=== PATIENT | female | born 1945 | race Caucasian/White ===

== ENCOUNTER 2017-05-16 01:02 | Emergency (ER) | payer MEDICARE, MEDICAID ==
[~2017-05-16] VITALS: Ht 162.6 cm; Wt 81.0 kg
[~2017-05-16 01:02] MED LIST: ACET-3161 PO; CIMETIDINE PO; INSLAN SQ; LEVIMIR FLEX PEN SUBCUT; LEVO150T8 PO; LOSA50TA20 PO; METF10002 PO; MULT-1146 PO; SIMV20TA6 PO
[2017-05-16] MEDS ORDERED: MORPHINE SULFATE 10 MG/ML CPJ IM ONE (02:30)
[2017-05-16 09:06] VITALS: BP 143/80
== END 2017-05-16 09:07 | disposition home or self-care (01) ==
LOC: ER 01:02
DX: S89.81XA Other specified injuries of right lower leg, initial encounter (principal); I10 Essential (primary) hypertension; Z98.1 Arthrodesis status; E11.9 Type 2 diabetes mellitus without complications; Z79.4 Long term (current) use of insulin; Z88.6 Allergy status to analgesic agent; Z88.0 Allergy status to penicillin; W01.0XXA Fall on same level from slipping, tripping and stumbling without subsequent striking against object, initial encounter; Y93.89 Activity, other specified; Y92.013 Bedroom of single-family (private) house as the place of occurrence of the external cause
CPT/HCPCS: 71045; 73030; 73562; 96372; 99284; J2270; L1830

== ENCOUNTER → 2020-01-09 | Outpatient (CLI) | payer MEDICARE, MEDICAID ==
[~2020-01-09] MED LIST changes: -CIMETIDINE PO; -LEVIMIR FLEX PEN SUBCUT; -LOSA50TA20 PO; +LOSA50TA41 PO; +METF-416 PO; -METF10002 PO; +SIMV-43 PO; -SIMV20TA6 PO
== END | disposition home or self-care (01) ==
LOC: MRI 08:43
PROVIDERS: ATTEND Neurological Surgery
DX: M43.17 Spondylolisthesis, lumbosacral region (principal); M48.07 Spinal stenosis, lumbosacral region; M47.816 Spondylosis without myelopathy or radiculopathy, lumbar region; M89.38 Hypertrophy of bone, other site; M47.812 Spondylosis without myelopathy or radiculopathy, cervical region; M48.02 Spinal stenosis, cervical region
CPT/HCPCS: 72141; 72148

== ENCOUNTER → 2020-01-15 | Outpatient (CLI) | payer MEDICARE, MEDICAID | END | disposition home or self-care (01) | LOC: RAD 11:30 | PROVIDERS: ATTEND Neurological Surgery | DX: M47.816 Spondylosis without myelopathy or radiculopathy, lumbar region (principal) | CPT/HCPCS: 72052 ==

== ENCOUNTER 2020-08-24 22:05 | Inpatient (IN) | payer MEDICARE, MEDICAID ==
[~2020-08-24] VITALS: Ht 167.6 cm; Wt 83.0 kg
[2020-08-24] MEDS ORDERED: MORPHINE SULFATE 4 MG/ML CPJ (NOT FOR IM USE) IV STA (22:49)
[2020-08-24] MEDS ORDERED: ONDANSETRON HCL 4MG/2ML INJ IV STA (22:49)
[2020-08-24] MEDS ORDERED: SODIUM CHLORIDE 0.9% 1,000 ML IV ONE (23:00)
[2020-08-24 23:30] LABS: BASOPHILS % 0.6 % (0.0-2.0); EOSINOPHILS % 3.6 % (0.0-5.0); HEMATOCRIT. 36.2 % (36.0-48.0); HEMOGLOBIN. 12.1 g/dL (12.0-16.0); LYMPHOCYTES % 25.4 % (20.0-50.0); MEAN CORPUSCULAR VOLUME 81.1 fL (81.0-99.0); MEAN PLATELET VOLUME 9.4 fl (7.4-10.4); MONOCYTES % 6.9 % (2.0-8.0); NEUTROPHILS % 63.5 % (40.0-76.0); PLATELET 318 x1000/uL (130-400); RED BLOOD CELL COUNT 4.46 mill/uL (4.2-5.4); RED CELL DISTRIBUTION WIDTH 14.5 % (11.6-14.6)
[2020-08-24 23:33] LABS: CHLORIDE 101 mEq/L (98-107)
[2020-08-24 23:36] LABS: PROTHROMBIN TIME 10.5 sec (9.6-11.0)
[2020-08-25 03:41] LABS: CLARITY URINE CLEAR (CLEAR); COLOR URINE YELLOW (YELLOW); KETONES URINE NEGATIVE (NEGATIVE); LEUKOCYTE ESTERASE URINE NEGATIVE (NEGATIVE); NITRITE URINE NEGATIVE (NEGATIVE); OCCULT BLOOD URINE NEGATIVE (NEGATIVE); PROTEIN URINE NEGATIVE (NEGATIVE); SPECIFIC GRAVITY URINE 1.027 (1.005-1.030); UROBILINOGEN URINE 0.2 E.U./dL (0.2-1.0)
[2020-08-25] MEDS: BLOOD SUGAR DIAGNOSTIC STRIP TEST SCH ×5 (03:55→21:45)
[2020-08-25] MEDS ORDERED: CLONIDINE 0.1MG TABLET PO PRN (04:00)
[2020-08-25] MEDS: INSULIN LISPRO (HIGH DOSE) 100 UNITS/ML SUBCUT SCH ×5 (04:10→21:54)
[2020-08-25] MEDS: MORPHINE SULFATE 2 MG/ML CPJ (NOT FOR IM USE) IV PRN ×4 (04:21→22:06)
[2020-08-25 08:00] VITALS: BP 142/65
[2020-08-25] MEDS: ENOXAPARIN 40MG/0.4ML SYR SUBCUT SCH (09:00)
[2020-08-25] MEDS: SODIUM CHL 0.45% + KCL 20MEQ/L 1,000 ML IV SCH ×2 (10:06→21:52)
[2020-08-25] MEDS: PANTOPRAZOLE SODIUM 40 MG/VIAL IV SCH (10:07)
[2020-08-25] MEDS: LOSARTAN POTASSIUM 100 MG TABLET PO SCH (10:07)
[2020-08-25] MEDS ORDERED: ONDANSETRON HCL 4MG/2ML INJ IV PRN (10:45)
[2020-08-25 12:00] VITALS: BP 136/76
[2020-08-25] MEDS ORDERED: MORPHINE SULFATE 2 MG/ML CPJ (NOT FOR IM USE) IV NR (12:00)
[2020-08-25] MEDS ORDERED: ACETAMINOPHEN 325MG TABLET PO PRN (14:30)
[2020-08-25] MEDS ORDERED: IPRATROPIUM/ALBUTEROL 0.5-3(2.5)MG/3ML NEB HHN PRN (14:30)
[2020-08-25] MEDS ORDERED: ACETAMINOPHEN 650MG SUPP PR PRN (14:30)
[2020-08-25] MEDS ORDERED: HYDROCODONE/ACETAMINOPHEN 5/325MG TABLET PO PRN (14:30)
[2020-08-25] MEDS ORDERED: BISACODYL 10MG SUPP PR PRN (14:30)
[2020-08-25 16:00] VITALS: BP 138/72
[2020-08-25 20:00] VITALS: BP 130/59
[2020-08-25 21:39] LABS: CREATINE KINASE MB FRACTION 1.3 ng/mL (0.5-3.6)
[2020-08-26] VITALS: BP 120/54
[2020-08-26] MEDS: MORPHINE SULFATE 2 MG/ML CPJ (NOT FOR IM USE) IV PRN ×3 (02:25→14:20)
[2020-08-26 04:00] VITALS: BP 108/51
[2020-08-26 06:05] LABS: BASOPHILS % 0.6 % (0.0-2.0); EOSINOPHILS % 1.8 % (0.0-5.0); HEMATOCRIT. 35.4 % (36.0-48.0); HEMOGLOBIN. 11.4 g/dL (12.0-16.0); LYMPHOCYTES % 19.4 % (20.0-50.0); MEAN CORPUSCULAR HEMOGLOBIN 26.6 pg (28.0-32.0); MEAN CORPUSCULAR VOLUME 82.4 fL (81.0-99.0); MEAN PLATELET VOLUME 9.7 fl (7.4-10.4); MONOCYTES % 9.2 % (2.0-8.0); PLATELET 258 x1000/uL (130-400); RED BLOOD CELL COUNT 4.29 mill/uL (4.2-5.4); RED CELL DISTRIBUTION WIDTH 14.5 % (11.6-14.6)
[2020-08-26 06:19] LABS: CHLORIDE 103 mEq/L (98-107)
[2020-08-26 06:30] LABS: LDL CHOLESTEROL 133 mg/dL (5-100)
[2020-08-26 06:33] LABS: HDL CHOLESTEROL 60 mg/dL (40-59); T4 FREE 1.22 ng/dL (0.76-1.46)
[2020-08-26] MEDS: BLOOD SUGAR DIAGNOSTIC STRIP TEST SCH ×4 (06:58→21:00)
[2020-08-26 08:00] VITALS: BP 135/64
[2020-08-26] MEDS: PANTOPRAZOLE SODIUM 40 MG/VIAL IV SCH (08:52)
[2020-08-26] MEDS: LOSARTAN POTASSIUM 100 MG TABLET PO SCH (08:53)
[2020-08-26] MEDS: ENOXAPARIN 40MG/0.4ML SYR SUBCUT SCH (09:00)
[2020-08-26] MEDS: INSULIN LISPRO (HIGH DOSE) 100 UNITS/ML SUBCUT SCH ×4 (09:01→21:00)
[2020-08-26] MEDS: SODIUM CHL 0.45% + KCL 20MEQ/L 1,000 ML IV SCH (10:25)
[2020-08-26 12:00] VITALS: BP 139/67
[2020-08-26 16:00] VITALS: BP 118/51
[2020-08-26] MEDS ORDERED: BUPIVACAINE HCL/PF 0.5% (5MG/ML) 10ML ONE (16:22)
[2020-08-26] MEDS ORDERED: VANCOMYCIN HCL 1 GM/VIAL ONE (16:22)
[2020-08-26] MEDS ORDERED: BACITRACIN 50,000 UNITS/VIAL ONE (16:23)
[2020-08-26] MEDS ORDERED: MIDAZOLAM HCL 2 MG/2 ML VIAL ONE (18:57)
[2020-08-26] MEDS ORDERED: PROPOFOL 200MG/20ML VIAL IV ONE ×2 (18:57→19:30)
[2020-08-26] MEDS ORDERED: FENTANYL CITRATE/PF 50MCG/ML 2ML VIAL ONE (18:57)
[2020-08-26] MEDS ORDERED: DEXAMETHASONE 4MG/ML 1ML VIAL ONE (18:58)
[2020-08-26] MEDS ORDERED: ONDANSETRON HCL 4MG/2ML INJ ONE (18:58)
[2020-08-26] MEDS ORDERED: CLINDAMYCIN 900 MG PREMIX 50 ML IV ONE (19:34)
[2020-08-26] MEDS ORDERED: LABETALOL 5MG/ML SYR 20 MG/4 ML SYRINGE IV PRN (20:00)
[2020-08-26] MEDS ORDERED: HYDROMORPHONE HCL/PF 2MG/ML CPJ IV PRN (20:00)
[2020-08-26] MEDS ORDERED: MEPERIDINE HCL/PF 25MG/ML CPJ IV PRN (20:00)
[2020-08-26] MEDS ORDERED: ONDANSETRON HCL 4MG/2ML INJ IV PRN (20:00)
[2020-08-26] MEDS ORDERED: HYDROMORPHONE HCL/PF 2MG/ML (OR) ONE (20:06)
[2020-08-26] MEDS ORDERED: ATORVASTATIN CALCIUM 10MG TABLET PO SCH (21:00)
[2020-08-26] MEDS: CLINDAMYCIN 900 MG PREMIX 50 ML IV SCH (23:04)
[2020-08-27] VITALS (7 sets, daily range): BP systolic 102–132; BP diastolic 45–64
[2020-08-27] MEDS: SODIUM CHL 0.45% + KCL 20MEQ/L 1,000 ML IV SCH (01:35)
[2020-08-27] MEDS: CLINDAMYCIN 900 MG PREMIX 50 ML IV SCH ×2 (06:29→13:10)
[2020-08-27] MEDS: BLOOD SUGAR DIAGNOSTIC STRIP TEST SCH ×3 (06:42→18:01)
[2020-08-27 07:45] LABS: HEMATOCRIT. 33.6 % (36.0-48.0); HEMOGLOBIN. 10.9 g/dL (12.0-16.0); MEAN CORPUSCULAR HEMOGLOBIN 26.9 pg (28.0-32.0); MEAN CORPUSCULAR VOLUME 82.8 fL (81.0-99.0); MEAN PLATELET VOLUME 9.9 fl (7.4-10.4); PLATELET 240 x1000/uL (130-400); RED BLOOD CELL COUNT 4.06 mill/uL (4.2-5.4); RED CELL DISTRIBUTION WIDTH 14.2 % (11.6-14.6)
[2020-08-27 08:06] LABS: CHLORIDE 99 mEq/L (98-107)
[2020-08-27] MEDS ORDERED: FAMOTIDINE 20MG/2ML VIAL IV SCH (09:00)
[2020-08-27] MEDS: LOSARTAN POTASSIUM 100 MG TABLET PO SCH (09:19)
[2020-08-27] MEDS: ENOXAPARIN 40MG/0.4ML SYR SUBCUT SCH (09:21)
[2020-08-27] MEDS: INSULIN LISPRO (HIGH DOSE) 100 UNITS/ML SUBCUT SCH ×3 (09:37→18:01)
[2020-08-27] MEDS: MORPHINE SULFATE 2 MG/ML CPJ (NOT FOR IM USE) IV PRN ×3 (09:41→18:03)
[2020-08-27] MEDS ORDERED: INSULIN GLARGINE UD 100 UNITS/ML SYR SUBCUT NR ×2 (13:30→17:45)
[2020-08-27] MEDS ORDERED: DOCUSATE SODIUM 100MG CAPSULE PO SCH (17:00)
[2020-08-27 17:02] LABS: PLATELET ESTIMATE NORMAL
[2020-08-27] MEDS ORDERED: INSULIN GLARGINE UD 100 UNITS/ML SYR SUBCUT SCH (22:00)
== END 2020-08-27 21:00 | DRG 480 ==
LOC: ER 22:05 → 6EST 08-25 02:41 → EDBEDREQSVC 08-25 02:56 → EDBEDREQTM 08-25 02:56 → EDBEDREQDT 08-25 02:56 → EDBEDREQ 08-25 02:56 → ENRESERV 08-25 05:11
PROVIDERS: ADMIT Internal Medicine; ATTEND Internal Medicine
PROC: 0QS604Z Reposition Right Upper Femur with Internal Fixation Device, Open Approach (ICD-10-PCS; principal; 2020-08-26)
DX: S72.141A Displaced intertrochanteric fracture of right femur, initial encounter for closed fracture (principal); I50.33 Acute on chronic diastolic (congestive) heart failure; E11.65 Type 2 diabetes mellitus with hyperglycemia; I11.0 Hypertensive heart disease with heart failure; I44.0 Atrioventricular block, first degree; E78.5 Hyperlipidemia, unspecified; Z88.0 Allergy status to penicillin; Z88.6 Allergy status to analgesic agent; Z79.4 Long term (current) use of insulin; Z79.899 Other long term (current) drug therapy; Z98.51 Tubal ligation status; Z98.1 Arthrodesis status; Z20.822 Contact with and (suspected) exposure to COVID-19; W18.39XA Other fall on same level, initial encounter; Y93.89 Activity, other specified; Y92.89 Other specified places as the place of occurrence of the external cause; Y99.8 Other external cause status
CPT/HCPCS: 36415; 71045; 73502; 73503; 73552; 76000; 80048; 80053; 80061; 81003; 82550; 82553; 82962; 83036; 83735; 84439; 84443; 84484; 85025; 86850; 86900; 87426; 93005; 93306; 93970; 97162; 97530; 99285; C1713; C1893; C9113; J1100; J1170; J1650; J1815; J2250; J2270; J2405; J2704; J3010; J3370; J3480; J3490; J7030; J7060; A4315

== ENCOUNTER 2021-11-23 14:51 | Inpatient (IN) | payer MEDICARE ==
[~2021-11-23] VITALS: Ht 149.9 cm; Wt 81.2 kg
[2021-11-23] MEDS ORDERED: MORPHINE SULFATE 4 MG/ML CPJ (NOT FOR IM USE) IV STA (19:33)
[2021-11-23] MEDS ORDERED: ONDANSETRON HCL 4MG/2ML INJ IV STA (19:33)
[2021-11-23 19:47] LABS: CLARITY URINE CLEAR (CLEAR); COLOR URINE YELLOW (YELLOW); KETONES URINE 1+ (NEGATIVE); LEUKOCYTE ESTERASE URINE TRACE (NEGATIVE); NITRITE URINE NEGATIVE (NEGATIVE); OCCULT BLOOD URINE NEGATIVE (NEGATIVE); PH URINE 5.5 (4.5-8.0); PROTEIN URINE NEGATIVE (NEGATIVE); SPECIFIC GRAVITY URINE 1.024 (1.005-1.030); UROBILINOGEN URINE 0.2 E.U./dL (0.2-1.0)
[2021-11-23 20:18] LABS: BASOPHILS % 0.8 % (0.0-2.0); HEMATOCRIT. 34.7 % (36.0-48.0); HEMOGLOBIN. 11.1 g/dL (12.0-16.0); LYMPHOCYTES % 22.7 % (20.0-50.0); MEAN CORPUSCULAR HEMOGLOBIN 25.1 pg (28.0-32.0); MEAN CORPUSCULAR VOLUME 78.3 fL (81.0-99.0); MEAN PLATELET VOLUME 8.9 fl (7.4-10.4); MONOCYTES % 7.6 % (2.0-8.0); NEUTROPHILS % 66.9 % (40.0-76.0); PLATELET 452 x1000/uL (130-400); RED BLOOD CELL COUNT 4.43 mill/uL (4.2-5.4); RED CELL DISTRIBUTION WIDTH 16.5 % (11.6-14.6)
[2021-11-23 20:21] LABS: CHLORIDE 97 mEq/L (98-107)
[2021-11-23] MEDS ORDERED: CALCIUM GLUCONATE 100MG/ML 10ML VIAL IV NR (21:00)
[2021-11-24] MEDS ORDERED: GUAIFENESIN 200MG/10ML SUGAR FREE UDC PO PRN (02:45)
[2021-11-24] MEDS ORDERED: HYDROCODONE/ACETAMINOPHEN 5/325MG TABLET PO PRN (02:45)
[2021-11-24] MEDS ORDERED: ONDANSETRON HCL 4MG/2ML INJ IV PRN (02:45)
[2021-11-24] MEDS ORDERED: MAGNESIUM/ALUMINUM HYDROXIDE/SIMETHICONE 30ML UDC PO PRN (02:45)
[2021-11-24] MEDS ORDERED: HYDROMORPHONE HCL/PF 2MG/ML CPJ IV PRN (02:45)
[2021-11-24] MEDS ORDERED: NALOXONE HCL 0.4MG/ML VIAL IV PRN (07:45)
[2021-11-24] MEDS ORDERED: DEXTROSE 50% WATER 50ML SYRINGE IV PRN (08:45)
[2021-11-24 09:26] VITALS: BP 148/65
[2021-11-24] MEDS: ENOXAPARIN 40MG/0.4ML SYR SUBCUT SCH (09:33)
[2021-11-24] MEDS: AMLODIPINE 10MG TABLET PO SCH (09:34)
[2021-11-24 10:26] VITALS: BP 143/65
[2021-11-24] MEDS: BLOOD SUGAR DIAGNOSTIC STRIP TEST SCH ×3 (11:27→21:14)
[2021-11-24 12:00] VITALS: BP 124/61
[2021-11-24] MEDS: INSULIN LISPRO 100 UNITS/ML SUBCUT SCH ×3 (12:52→21:31)
[2021-11-24] MEDS: DIPHENHYDRAMINE 25MG CAPSULE PO PRN (14:37)
[2021-11-24 16:00] VITALS: BP 129/60
[2021-11-24] MEDS: HYDROCODONE/ACETAMINOPHEN 10/325MG TABLET PO PRN ×2 (16:49→21:30)
[2021-11-24 20:00] VITALS: BP 107/49
[2021-11-25] VITALS: BP 142/65
[2021-11-25 04:00] VITALS: BP 129/49
[2021-11-25] MEDS: HYDROCODONE/ACETAMINOPHEN 10/325MG TABLET PO PRN ×3 (06:16→17:53)
[2021-11-25] MEDS: BLOOD SUGAR DIAGNOSTIC STRIP TEST SCH ×4 (06:16→20:29)
[2021-11-25] MEDS: INSULIN LISPRO 100 UNITS/ML SUBCUT SCH ×4 (06:23→21:43)
[2021-11-25 08:00] VITALS: BP 109/59
[2021-11-25 08:08] LABS: EOSINOPHILS % 4.5 % (0.0-5.0); HEMATOCRIT. 35.1 % (36.0-48.0); HEMOGLOBIN. 11.4 g/dL (12.0-16.0); LYMPHOCYTES % 34.3 % (20.0-50.0); MEAN CORPUSCULAR HEMOGLOBIN 25.4 pg (28.0-32.0); MEAN CORPUSCULAR VOLUME 78.4 fL (81.0-99.0); MEAN PLATELET VOLUME 9.2 fl (7.4-10.4); MONOCYTES % 9.5 % (2.0-8.0); NEUTROPHILS % 50.7 % (40.0-76.0); PLATELET 438 x1000/uL (130-400); RED BLOOD CELL COUNT 4.48 mill/uL (4.2-5.4); RED CELL DISTRIBUTION WIDTH 16.3 % (11.6-14.6)
[2021-11-25 08:17] LABS: CHLORIDE 100 mEq/L (98-107)
[2021-11-25] MEDS: AMLODIPINE 10MG TABLET PO SCH (08:21)
[2021-11-25] MEDS: ENOXAPARIN 40MG/0.4ML SYR SUBCUT SCH (08:28)
[2021-11-25 08:32] LABS: HDL CHOLESTEROL 48 mg/dL (40-59); LDL CHOLESTEROL 177 mg/dL (5-100)
[2021-11-25 12:00] VITALS: BP 107/60
[2021-11-25 16:00] VITALS: BP 125/68
[2021-11-25 17:01] LABS: PROTHROMBIN TIME 10.9 sec (9.6-11.0)
[2021-11-25 20:00] VITALS: BP 135/59
[2021-11-25] MEDS: ATORVASTATIN CALCIUM 20MG TABLET PO SCH (20:13)
[2021-11-25] MEDS: DOCUSATE SODIUM 100MG CAPSULE PO PRN (20:13)
[2021-11-25] MEDS: TRAMADOL 50MG TABLET PO PRN (20:21)
[2021-11-26] VITALS: BP 123/58
[2021-11-26] MEDS: HYDROCODONE/ACETAMINOPHEN 10/325MG TABLET PO PRN ×3 (01:00→15:09)
[2021-11-26 04:00] VITALS: BP 153/68
[2021-11-26] MEDS: DOCUSATE SODIUM 100MG CAPSULE PO PRN ×2 (05:56→10:14)
[2021-11-26] MEDS: INSULIN LISPRO 100 UNITS/ML SUBCUT SCH ×4 (05:57→20:53)
[2021-11-26] MEDS: BLOOD SUGAR DIAGNOSTIC STRIP TEST SCH ×4 (05:57→20:37)
[2021-11-26] MEDS: LEVOTHYROXINE SODIUM 125MCG TABLET PO SCH (06:26)
[2021-11-26 07:11] LABS: BASOPHILS % 0.5 % (0.0-2.0); EOSINOPHILS % 3.6 % (0.0-5.0); HEMOGLOBIN. 11.4 g/dL (12.0-16.0); LYMPHOCYTES % 21.8 % (20.0-50.0); MEAN CORPUSCULAR HEMOGLOBIN 25.4 pg (28.0-32.0); MEAN CORPUSCULAR VOLUME 78.2 fL (81.0-99.0); MEAN PLATELET VOLUME 9.3 fl (7.4-10.4); NEUTROPHILS % 65.1 % (40.0-76.0); PLATELET 410 x1000/uL (130-400); RED BLOOD CELL COUNT 4.48 mill/uL (4.2-5.4); RED CELL DISTRIBUTION WIDTH 16.3 % (11.6-14.6)
[2021-11-26 07:13] LABS: CHLORIDE 101 mEq/L (98-107)
[2021-11-26 07:49] LABS: HDL CHOLESTEROL 43 mg/dL (40-59); LDL CHOLESTEROL 160 mg/dL (5-100); T4 FREE 0.99 ng/dL (0.76-1.46)
[2021-11-26 08:00] VITALS: BP 122/67
[2021-11-26] MEDS: AMLODIPINE 10MG TABLET PO SCH (10:13)
[2021-11-26] MEDS: ENOXAPARIN 40MG/0.4ML SYR SUBCUT SCH (10:14)
[2021-11-26 12:00] VITALS: BP 133/71
[2021-11-26 16:00] VITALS: BP 138/63
[2021-11-26] MEDS: TRAMADOL 50MG TABLET PO PRN (18:01)
[2021-11-26 20:00] VITALS: BP 121/62
[2021-11-26] MEDS: ATORVASTATIN CALCIUM 20MG TABLET PO SCH (20:48)
[2021-11-27] VITALS: BP 114/66
[2021-11-27 04:00] VITALS: BP 141/51
[2021-11-27] MEDS: BLOOD SUGAR DIAGNOSTIC STRIP TEST SCH ×4 (05:34→20:23)
[2021-11-27] MEDS: LEVOTHYROXINE SODIUM 125MCG TABLET PO SCH (05:35)
[2021-11-27] MEDS: DOCUSATE SODIUM 100MG CAPSULE PO PRN (05:39)
[2021-11-27] MEDS: INSULIN LISPRO 100 UNITS/ML SUBCUT SCH ×4 (05:43→21:27)
[2021-11-27 08:24] VITALS: BP 117/71
[2021-11-27] MEDS: ENOXAPARIN 40MG/0.4ML SYR SUBCUT SCH (08:34)
[2021-11-27] MEDS: TRAMADOL 50MG TABLET PO PRN (08:34)
[2021-11-27] MEDS: AMLODIPINE 10MG TABLET PO SCH (08:34)
[2021-11-27 11:57] VITALS: BP 115/62
[2021-11-27 16:16] VITALS: BP 124/69
[2021-11-27] MEDS: HYDROCODONE/ACETAMINOPHEN 10/325MG TABLET PO PRN ×2 (16:47→21:30)
[2021-11-27] MEDS: DIPHENHYDRAMINE 25MG CAPSULE PO PRN (18:33)
[2021-11-27 20:00] VITALS: BP 131/82
[2021-11-27] MEDS: ATORVASTATIN CALCIUM 20MG TABLET PO SCH (21:23)
[2021-11-27] MEDS: INSULIN GLARGINE 100 UNITS/ML SUBCUT SCH (21:26)
[2021-11-28] VITALS (44 sets, daily range): BP systolic 68–160; BP diastolic 41–72
[2021-11-28] MEDS: LEVOTHYROXINE SODIUM 125MCG TABLET PO SCH (01:34)
[2021-11-28] MEDS: BLOOD SUGAR DIAGNOSTIC STRIP TEST SCH ×3 (05:36→17:03)
[2021-11-28] MEDS: INSULIN LISPRO 100 UNITS/ML SUBCUT SCH ×3 (05:36→17:03)
[2021-11-28] MEDS ORDERED: GENTAMICIN SULF 40MG/ML 2ML VIAL ONE (06:52)
[2021-11-28] MEDS ORDERED: THROMBIN (BOVINE) 5000 UNITS/VIAL TOP ONE (06:52)
[2021-11-28] MEDS ORDERED: LIDOCAINE HCL/EPINEPHRINE 1%-EPI 1:100,000 20 ML VIAL ONE (06:52)
[2021-11-28] MEDS ORDERED: SUCCINYLCHOLINE CHLORIDE 200MG/10ML IV ONE ×2 (07:01→07:07)
[2021-11-28] MEDS ORDERED: NEOSTIGMINE METHYLSULFATE 1MG/ML 10 ML VIAL ONE (07:01)
[2021-11-28] MEDS ORDERED: ROCURONIUM BROMIDE 10MG/ML VIAL 5ML IV ONE ×2 (07:01→09:47)
[2021-11-28] MEDS ORDERED: GLYCOPYRROLATE 0.2 MG/ML 2ML VIAL ONE ×3 (07:02)
[2021-11-28] MEDS ORDERED: LIDOCAINE HCL 1% 50ML VIAL (10MG/ML) ONE (07:02)
[2021-11-28] MEDS ORDERED: FENTANYL CITRATE/PF 50MCG/ML 2ML VIAL ONE (07:03)
[2021-11-28] MEDS ORDERED: MIDAZOLAM HCL 2 MG/2 ML VIAL ONE (07:03)
[2021-11-28] MEDS ORDERED: PROPOFOL 200MG/20ML VIAL IV ONE (07:03)
[2021-11-28] MEDS ORDERED: CLINDAMYCIN 900 MG PREMIX 50 ML IV ONE (07:23)
[2021-11-28 08:14] LABS: BASOPHILS % 0.8 % (0.0-2.0); HEMATOCRIT. 36.5 % (36.0-48.0); HEMOGLOBIN. 11.8 g/dL (12.0-16.0); LYMPHOCYTES % 27.2 % (20.0-50.0); MEAN CORPUSCULAR HEMOGLOBIN 25.1 pg (28.0-32.0); MEAN CORPUSCULAR VOLUME 77.7 fL (81.0-99.0); MEAN PLATELET VOLUME 9.4 fl (7.4-10.4); MONOCYTES % 10.1 % (2.0-8.0); NEUTROPHILS % 57.9 % (40.0-76.0); PLATELET 395 x1000/uL (130-400); RED BLOOD CELL COUNT 4.69 mill/uL (4.2-5.4); RED CELL DISTRIBUTION WIDTH 16.8 % (11.6-14.6)
[2021-11-28 08:38] LABS: CHLORIDE 102 mEq/L (98-107)
[2021-11-28] MEDS: AMLODIPINE 10MG TABLET PO SCH (09:00)
[2021-11-28] MEDS: ENOXAPARIN 40MG/0.4ML SYR SUBCUT SCH (09:00)
[2021-11-28] MEDS ORDERED: NICARDIPINE 100 MG in SODIUM CHLORIDE 0.9% 60 ML IV PRN (11:00)
[2021-11-28] MEDS ORDERED: MORPHINE SULFATE 4 MG/ML CPJ (NOT FOR IM USE) IV PRN (11:00)
[2021-11-28] MEDS: DEXT 5%/LACTATED RINGERS 1,000 ML IV SCH ×2 (11:52→19:00)
[2021-11-28] MEDS: CLINDAMYCIN 600 MG PREMIX 50 ML IV SCH ×2 (13:02→21:22)
[2021-11-28 13:23] LABS: BG BASE EXCESS -5.6 mmol/L (-2.0-2.0); BG CARBOXYHEMOGLOBIN 0.3 % (0.5-1.5); BG DEOXYHEMOGLOBIN 1.6 % (0.0-5.0); BG FRACTION INSPIRED OXYGEN 45; BG HCO3 ACT 18.1 mmol/L (22.0-26.0); BG METHEMOGLOBIN 0.3 % (0.0-1.5); BG OXYGEN SATURATION 98.4 % (92.0-98.5); BG OXYHEMOGLOBIN 97.8 % (94.0-97.0); BG PCO2 30.1 mmHg (35.0-45.0); BG PH 7.397 (7.350-7.450); BG SAMPLE SITE RIGHT RADIAL; BG TOTAL HEMOGLOBIN 12.1 g/dL (12.0-18.0); BG VENT MODE VENT - AC
[2021-11-28 15:50] LABS: BG BASE EXCESS -2.7 mmol/L (-2.0-2.0); BG CARBOXYHEMOGLOBIN 0.2 % (0.5-1.5); BG DEOXYHEMOGLOBIN 1.2 % (0.0-5.0); BG FRACTION INSPIRED OXYGEN 45; BG HCO3 ACT 21.5 mmol/L (22.0-26.0); BG METHEMOGLOBIN 0.3 % (0.0-1.5); BG OXYGEN SATURATION 98.8 % (92.0-98.5); BG OXYHEMOGLOBIN 98.3 % (94.0-97.0); BG PCO2 35.1 mmHg (35.0-45.0); BG PH 7.404 (7.350-7.450); BG PO2 158.3 mmHg (75.0-100.0); BG SAMPLE SITE RIGHT RADIAL; BG TOTAL HEMOGLOBIN 11.9 g/dL (12.0-18.0); BG VENT MODE VENT - CPAP
[2021-11-28] MEDS: MORPHINE SULFATE 4 MG/ML CPJ (NOT FOR IM USE) IV PRN (16:30)
[2021-11-28] MEDS: ATORVASTATIN CALCIUM 20MG TABLET PO SCH (21:22)
[2021-11-28] MEDS: INSULIN GLARGINE 100 UNITS/ML SUBCUT SCH (21:35)
[2021-11-29] VITALS (38 sets, daily range): BP systolic 91–127; BP diastolic 40–69
[2021-11-29] MEDS: BLOOD SUGAR DIAGNOSTIC STRIP TEST SCH ×4 (00:23→18:00)
[2021-11-29] MEDS: INSULIN LISPRO 100 UNITS/ML SUBCUT SCH ×4 (00:28→18:00)
[2021-11-29] MEDS: DEXT 5%/LACTATED RINGERS 1,000 ML IV SCH ×3 (03:16→21:22)
[2021-11-29] MEDS: CLINDAMYCIN 600 MG PREMIX 50 ML IV SCH ×3 (05:11→21:23)
[2021-11-29] MEDS: LEVOTHYROXINE SODIUM 125MCG TABLET PO SCH (05:24)
[2021-11-29] MEDS ORDERED: LIDOCAINE HCL 1% 10 MG/ML 10ML VIAL ONE (09:59)
[2021-11-29] MEDS: ENOXAPARIN 40MG/0.4ML SYR SUBCUT SCH (11:24)
[2021-11-29] MEDS: DOCUSATE SODIUM 100MG CAPSULE PO PRN (11:24)
[2021-11-29] MEDS: AMLODIPINE 10MG TABLET PO SCH (11:24)
[2021-11-29] MEDS: MORPHINE SULFATE 4 MG/ML CPJ (NOT FOR IM USE) IV PRN ×4 (11:26→21:22)
[2021-11-29] MEDS: ATORVASTATIN CALCIUM 20MG TABLET PO SCH (21:23)
[2021-11-29] MEDS: INSULIN GLARGINE 100 UNITS/ML SUBCUT SCH (21:25)
[2021-11-30] VITALS (7 sets, daily range): BP systolic 104–128; BP diastolic 50–64
[2021-11-30] MEDS: BLOOD SUGAR DIAGNOSTIC STRIP TEST SCH ×4 (00:59→17:26)
[2021-11-30] MEDS: MORPHINE SULFATE 4 MG/ML CPJ (NOT FOR IM USE) IV PRN ×4 (01:05→22:03)
[2021-11-30] MEDS: INSULIN LISPRO 100 UNITS/ML SUBCUT SCH ×4 (01:07→17:34)
[2021-11-30] MEDS: DEXT 5%/LACTATED RINGERS 1,000 ML IV SCH ×3 (05:38→22:04)
[2021-11-30] MEDS: CLINDAMYCIN 600 MG PREMIX 50 ML IV SCH (05:38)
[2021-11-30] MEDS: LEVOTHYROXINE SODIUM 125MCG TABLET PO SCH (05:40)
[2021-11-30 08:11] LABS: CHLORIDE 103 mEq/L (98-107)
[2021-11-30] MEDS: AMLODIPINE 10MG TABLET PO SCH (09:00)
[2021-11-30 09:20] LABS: BASOPHILS % 0.7 % (0.0-2.0); EOSINOPHILS % 2.4 % (0.0-5.0); HEMATOCRIT. 26.8 % (36.0-48.0); LYMPHOCYTES % 17.8 % (20.0-50.0); MEAN CORPUSCULAR HEMOGLOBIN 25.1 pg (28.0-32.0); MEAN CORPUSCULAR VOLUME 79.2 fL (81.0-99.0); MEAN PLATELET VOLUME 9.5 fl (7.4-10.4); MONOCYTES % 10.1 % (2.0-8.0); PLATELET 302 x1000/uL (130-400); RED BLOOD CELL COUNT 3.39 mill/uL (4.2-5.4); RED CELL DISTRIBUTION WIDTH 17.4 % (11.6-14.6)
[2021-11-30 09:22] LABS: HEMOGLOBIN. 8.5 g/dL (12.0-16.0)
[2021-11-30] MEDS: ATORVASTATIN CALCIUM 20MG TABLET PO SCH (20:36)
[2021-11-30] MEDS: ACETAMINOPHEN 325MG TABLET PO PRN (20:36)
[2021-11-30] MEDS: INSULIN GLARGINE 100 UNITS/ML SUBCUT SCH (21:02)
[2021-11-30 23:56] LABS: CLARITY URINE CLEAR (CLEAR); COLOR URINE YELLOW (YELLOW); KETONES URINE NEGATIVE (NEGATIVE); LEUKOCYTE ESTERASE URINE NEGATIVE (NEGATIVE); NITRITE URINE NEGATIVE (NEGATIVE); OCCULT BLOOD URINE NEGATIVE (NEGATIVE); PROTEIN URINE NEGATIVE (NEGATIVE); SPECIFIC GRAVITY URINE 1.013 (1.005-1.030); UROBILINOGEN URINE 0.2 E.U./dL (0.2-1.0)
[2021-12-01] VITALS: BP 123/54
[2021-12-01] MEDS: BLOOD SUGAR DIAGNOSTIC STRIP TEST SCH ×5 (00:05→23:18)
[2021-12-01] MEDS: INSULIN LISPRO 100 UNITS/ML SUBCUT SCH ×5 (00:05→23:18)
[2021-12-01 04:00] VITALS: BP 118/53
[2021-12-01] MEDS: MORPHINE SULFATE 4 MG/ML CPJ (NOT FOR IM USE) IV PRN ×2 (05:30→10:43)
[2021-12-01] MEDS: LEVOTHYROXINE SODIUM 125MCG TABLET PO SCH (06:32)
[2021-12-01 07:29] LABS: BASOPHILS % 0.5 % (0.0-2.0); EOSINOPHILS % 4.3 % (0.0-5.0); HEMATOCRIT. 25.1 % (36.0-48.0); LYMPHOCYTES % 25.1 % (20.0-50.0); MEAN CORPUSCULAR HEMOGLOBIN 25.2 pg (28.0-32.0); MEAN CORPUSCULAR VOLUME 79.3 fL (81.0-99.0); MEAN PLATELET VOLUME 9.7 fl (7.4-10.4); MONOCYTES % 11.5 % (2.0-8.0); NEUTROPHILS % 58.6 % (40.0-76.0); PLATELET 262 x1000/uL (130-400); RED BLOOD CELL COUNT 3.16 mill/uL (4.2-5.4); RED CELL DISTRIBUTION WIDTH 16.8 % (11.6-14.6)
[2021-12-01 07:46] LABS: CHLORIDE 104 mEq/L (98-107)
[2021-12-01 08:00] VITALS: BP 120/59
[2021-12-01] MEDS: AMLODIPINE 10MG TABLET PO SCH (08:53)
[2021-12-01] MEDS: DEXT 5%/LACTATED RINGERS 1,000 ML IV SCH ×2 (10:40→21:18)
[2021-12-01 12:00] VITALS: BP 128/70
[2021-12-01 16:00] VITALS: BP 108/82
[2021-12-01] MEDS: HYDROCODONE/ACETAMINOPHEN 5/325MG TABLET PO PRN (17:35)
[2021-12-01 20:00] VITALS: BP 123/52
[2021-12-01] MEDS: ACETAMINOPHEN 325MG TABLET PO PRN (21:18)
[2021-12-01] MEDS: ATORVASTATIN CALCIUM 20MG TABLET PO SCH (21:18)
[2021-12-01] MEDS: INSULIN GLARGINE 100 UNITS/ML SUBCUT SCH (21:23)
[2021-12-02] VITALS: BP 105/53
[2021-12-02 04:30] VITALS: BP 127/54
[2021-12-02] MEDS: HYDROCODONE/ACETAMINOPHEN 5/325MG TABLET PO PRN ×2 (05:29→09:59)
[2021-12-02] MEDS: BLOOD SUGAR DIAGNOSTIC STRIP TEST SCH ×3 (06:21→17:55)
[2021-12-02] MEDS: LEVOTHYROXINE SODIUM 125MCG TABLET PO SCH (06:29)
[2021-12-02] MEDS: INSULIN LISPRO 100 UNITS/ML SUBCUT SCH ×3 (06:30→18:00)
[2021-12-02 08:00] VITALS: BP 108/56
[2021-12-02] MEDS: DEXT 5%/LACTATED RINGERS 1,000 ML IV SCH (09:27)
[2021-12-02] MEDS: AMLODIPINE 10MG TABLET PO SCH (09:59)
[2021-12-02] MEDS: DOCUSATE SODIUM 100MG CAPSULE PO PRN (10:03)
[2021-12-02 12:06] VITALS: BP 110/50
[2021-12-02] MEDS: MORPHINE SULFATE 4 MG/ML CPJ (NOT FOR IM USE) IV PRN (14:04)
[2021-12-02 16:00] VITALS: BP 124/50
[2021-12-02 18:14] VITALS: BP 129/71
[2021-12-02] MEDS ORDERED: INSULIN GLARGINE 100 UNITS/ML SUBCUT SCH (22:00)
[2021-12-02] MEDS ORDERED: NALOXONE HCL 0.4MG/ML VIAL IV PRN (23:00)
== END 2021-12-02 19:45 | DRG 460 ==
LOC: ER 14:51 → MICUSO 22:33 → 8WST 11-24 07:30 → EDBEDREQTM 11-24 08:46 → CMPBEDREQ 11-25 01:39 → MICUNO 11-28 10:50 → 6WST 11-29 15:10
PROVIDERS: ADMIT Internal Medicine; ATTEND Internal Medicine
PROC: 0SG1071 Fusion of 2 or more Lumbar Vertebral Joints with Autologous Tissue Substitute, Posterior Approach, Posterior Column, Open Approach (ICD-10-PCS; principal; 2021-11-28)
PROC: 5A09357 Assistance with Respiratory Ventilation, Less than 24 Consecutive Hours, Continuous Positive Airway Pressure (ICD-10-PCS; 2021-11-28)
PROC: 01NB0ZZ Release Lumbar Nerve, Open Approach (ICD-10-PCS; 2021-11-28)
PROC: 4A11X4G Monitoring of Peripheral Nervous Electrical Activity, Intraoperative, External Approach (ICD-10-PCS; 2021-11-28)
PROC: 05HY33Z Insertion of Infusion Device into Upper Vein, Percutaneous Approach (ICD-10-PCS; 2021-11-29)
PROC: B54MZZA Ultrasonography of Right Upper Extremity Veins, Guidance (ICD-10-PCS; 2021-11-29)
DX: M48.061 Spinal stenosis, lumbar region without neurogenic claudication (principal); G82.20 Paraplegia, unspecified; G96.09 Other spinal cerebrospinal fluid leak; M47.26 Other spondylosis with radiculopathy, lumbar region; I10 Essential (primary) hypertension; E66.9 Obesity, unspecified; E11.9 Type 2 diabetes mellitus without complications; E03.9 Hypothyroidism, unspecified; E78.5 Hyperlipidemia, unspecified; Z79.84 Long term (current) use of oral hypoglycemic drugs; Z79.899 Other long term (current) drug therapy; Z30.2 Encounter for sterilization; Z79.4 Long term (current) use of insulin; Z20.822 Contact with and (suspected) exposure to COVID-19; Z68.36 Body mass index [BMI] 36.0-36.9, adult; Z88.0 Allergy status to penicillin; Z88.8 Allergy status to other drugs, medicaments and biological substances; M43.16 Spondylolisthesis, lumbar region
CPT/HCPCS: 36415; 36573; 36600; 71045; 72100; 72131; 72148; 72192; 76000; 80048; 80053; 80061; 81003; 82375; 82805; 82962; 84439; 84443; 84481; 85025; 86850; 86900; 87426; 88300; 93005; 93306; 93970; 94002; 95863; 95925; 95926; 95928; 95929; 95940; 97110; 97116; 97161; 97162; 97165; 97166; 97530; 97535; 99285; C1713; C1725; J0330; J0610; J1170; J1580; J1650; J1815; J2250; J2270; J2405; J2704; J2710; J3010; J3490; J7121; Q0163; C1762